=== PATIENT | male | born 1960 | race Caucasian/White ===

== ENCOUNTER 2018-09-23 12:48 | Emergency (ER) | payer OTHER ==
[~2018-09-23] VITALS: Ht 182.9 cm; Wt 90.7 kg
[~2018-09-23 12:48] MED LIST: ACHYD1T PO; CIPR500T78 PO; DCS100C PO; HDR4T PO; HYDR-1231 PO; HYOS0.1216 PO; IBUP400T22 PO; IBUP800T26 PO; ONDA-42 SL; PHEN200T27 PO
--- OUTSIDE RECORDS SUMMARY | 2018-09-23 12:53 | XMS REPORT ---
Author Author SARAH CHRIS Organization [facility] Address [address] [place] [address] Care Team Providers Care Lap Machine Tender Name Role Phone SARAH CHRIS Unavailable PROBLEMS Unknown Problems ALLERGIES Substance Reaction Event Type Date Status Codeine Sulfate Unknown Drug Allergy Feb, Active ENCOUNTERS Encounter Location Date Diagnosis [facility] [address] [facility] [id number] [address] Feb, Upper back strain S29.012A [facility] [address] [facility] [id number], [place] [address] Feb, Bronchitis J40 and Chills R68.83 IMMUNIZATIONS No Known Immunizations SOCIAL HISTORY Never Assessed REASON FOR VISIT Pain (acute) back after crawling up a ladder tuesday. back pain on left lumbar. Tesfaye DIETZ PLAN OF CARE Activity Details Follow Up prn Reason: VITAL SIGNS Height 70 in 2018-02-14 Weight 234.2 lbs 2018-02-14 Temperature 97.5 degrees Fahrenheit 2018-02-14 Heart Rate 79 bpm 2018-02-14 Respiratory Rate 22 2018-02-14 BMI 33.6 kg/m2 2018-02-14 Blood pressure systolic 115 mmHg 2018-02-14 Blood pressure diastolic 74 mmHg 2018-02-14 MEDICATIONS Medication Instructions Dosage Frequency Start Date End Date Duration Status Naproxen 500 MG Orally 2 times a day 1 tablet with food or milk as needed 12h 11 Feb, 2018 Active Azithromycin 250 MG Orally Once a day 2 tablets on the first day, then 1 tablet daily for 4 days 24h 5 day(s) Active RESULTS No Results PROCEDURES No Known procedures INSTRUCTIONS MEDICATIONS ADMINISTERED No Known Medications
--- OUTSIDE RECORDS SUMMARY | 2018-09-23 12:53 | XMS REPORT | Continuity of Care Document ---
Author Organization Unknown Address Unknown Allergies Active Description Code Type Severity Reaction Onset Reported/Identified Relationship to Patient Clinical Status Yes NO KNOWN DRUG ALLERGIES UNKNOWN NO KNOWN DRUG ALLERG Yes NO KNOWN DRUG ALLERGIES UNKNOWN UNKNOWN Yes codeine [id number] Drug Allergy Unknown N/A 06/09/2005 Medications Medication Packaging Start Date Stop Date Route Dosage Sig NORMAL SALINE 1000CC IV BAG INJ 0.9 % (NS 1000CC IV BAG) ml 02/02/2018 02/02/2018 ONCE&1904 SMZ/TMP DS TAB (SEPTRA DS) (Bactrim DS) TAB 02/02/2018 02/02/2018 ONCE&2016 KETOROLAC VIAL INJ 30 MG/CC (TORADOL VIAL) MG 09/20/2018 09/20/2018 ONCE&2305 TAMSULOSIN CAP 0.4 MG (FLOMAX) MG 09/20/2018 09/20/2018 ONCE&2330 ONDANSETRON VIAL INJ 4 MG/2CC (ZOFRAN 2CC VIAL) MG 09/20/2018 09/20/2018 PRN ONCE CEFTRIAXONE PREMIX IV BAG IV 1 GM/50CC (ROCEPHIN PREMIX IV BAG) GM 09/20/2018 09/20/2018 ONCE&2330 FENTANYL INJ 100 MCG/2CC VIAL MCG 09/20/2018 09/20/2018 ONCE&2331 FENTANYL INJ 100 MCG/2CC VIAL MCG 09/21/2018 09/21/2018 ONCE&0012 Problems Date Dx Coded Attending Type Code Diagnosis Diagnosed By 02/12/2011 Ot 592.0 CALCULUS OF KIDNEY 02/12/2011 Ot 593.2 CYST OF KIDNEY, ACQUIRED 02/12/2011 Ot 789.09 ABDOMINAL PAIN, OTHER SPECIFIED SITE 02/02/2018 Chucky Momin 592 CALCULUS OF KIDNEY AND URETER 02/02/2018 Chucky Momin N20.2 CALCULUS OF KIDNEY WITH CALCULUS OF URETER 09/21/2018 KATIA WELDON 592.0 CALCULUS OF KIDNEY 09/21/2018 KATIA WELDON N20.0 CALCULUS OF KIDNEY Procedures There is no data. Results Test Result Range Mycoplasma - 02/26/17 10:09 Mycoplasma Negative Negative Urinalysis - 02/02/18 18:30 Icotest N/A Negative Urine Crystals Calcium oxalate crystals: Few/HPF Urine Volume Urine Volume Sufficient (10mL) Urine-Appearance Slightly Cloudy Clear Urine-Bacteria Rare Urine-Bilirubin Negative Negative Urine-Blood 3+ Negative Urine-Color Yellow Colorless-Lt. Yellow Urine-Epithelial Cells 0-5/HPF Urine-Glucose Negative Negative Urine-Ketones Trace Negative Urine-Leukocytes Negative Negative Urine-Nitrite Negative Negative Urine-Other Urine Saved if Culture Needed (48hrs from time of collection) Urine-pH 5.5 5-8.5 Urine-Protein Trace Negative Urine-RBC TNTC Urine-Specific [place] 1.025 1.000-1.030 Urine-WBC 0-2/HPF Urobilinogen 1.0 0.2-1.0 Comprehensive Metabolic Panel - 02/02/18 18:35 Albumin 4.5 g/dL 3.6-5.1 ALP 67 U/L 35-130 ALT 41 U/L 6-45 Anion Gap 15 6-14 AST 28 U/L 2-40 BUN 24 mg/dL 5-25 Calcium 9.5 mg/dL 8.3-10.4 Chloride 105 mmol/L 95-114 CO2 23 mEq/L 22-33 Creat 1.06 mg/dL 0.50-1.50 eGFR 72 mL/min/1.73m2 >59 Globulin 3.1 g/dL 2.3-3.5 Glucose 95 mg/dL 70-110 Osmo 291 280-295 Potassium 4.1 mmol/L 3.5-5.3 Sodium 139 mmol/L 134-148 TBil 0.5 mg/dL 0.2-1.2 TP 7.6 g/dL 6.0-8.3 Comprehensive Metabolic Panel - 09/20/18 23:04 Albumin 4.4 g/dL 3.6-5.1 ALP 54 U/L 35-130 ALT 46 U/L 6-45 Anion Gap 16 6-14 AST 28 U/L 2-40 BUN 18 mg/dL 5-25 Calcium 10.3 mg/dL 8.3-10.4 Chloride 104 mmol/L 95-114 CO2 24 mEq/L 22-33 Creat 1.18 mg/dL 0.50-1.50 eGFR 63 mL/min/1.73m2 >59 Globulin 2.7 g/dL 2.3-3.5 Glucose 115 mg/dL 70-110 Osmo 292 280-295 Potassium 3.9 mmol/L 3.5-5.3 Sodium 140 mmol/L 134-148 TBil 0.9 mg/dL 0.2-1.2 TP 7.1 g/dL 6.0-8.3 Encounters ACCT No. Visit Date/Time Discharge Status Pt. Type Provider Facility Loc./Unit Complaint [id number] 09/20/2018 22:49:00 09/21[facility]2018 [facility]45[id number]/02/2018 18:16:00 02/02/2018 21[facility]10:00 [id number] 09/28/2017 00:00:00 09/28/2017 23:59:00 DIS Outpatient TAMMI CANCINO [id number] 02/26/2017 09:58:00 02/26/2017 23:59:00 DIS Outpatient Tod Roman [id number] 02/02/2018 19:04:51 Document Registration [id number] 09/21/2017 13:15:00 09/21/2017 23:59:59 CLS Preadmit BEVERLY FLOWERS APRN [facility] RAD CALCIFIC TENDONITIS [id number] 10/16/2013 07:43:00 12/31/2013 00:01:00 DIS Outpatient [id number] 09/10/2013 14:35:00 09/10/2013 23:59:59 CLS Outpatient [id number] 09/05/2013 07:20:00 09/05/2013 23:59:59 CLS Outpatient [id number] 08/29/2013 01:35:00 08/29/2013 12:45:00 DIS Outpatient [id number] 08/26/2013 13:43:00 08/27/2013 10:20:00 DIS Inpatient [id number] 08/23/2013 08:02:00 08/23/2013 11:09:00 DIS Emergency [id number] 08/08/2012 15:15:00 08/08/2012 23:59:59 [facility] Outpatient [id number] 02/12/2011 14:36:00 Document Registration
--- OUTSIDE RECORDS SUMMARY | 2018-09-23 12:53 | XMS REPORT ---
Author Author KYA COTTON Organization [facility] Address [address] [place] [address] Care Team Providers Care Dialysis Clinical Manager Name Role Phone KYA COTTON Unavailable PROBLEMS Unknown Problems ALLERGIES Substance Reaction Event Type Date Status Codeine Sulfate Unknown Drug Allergy Feb, Active ENCOUNTERS Encounter Location Date Diagnosis [facility] [address] [facility] [id number], [place] [address] Feb, Bronchitis J40 and Chills R68.83 IMMUNIZATIONS No Known Immunizations SOCIAL HISTORY Never Assessed REASON FOR VISIT Chest lani, cough, body aches, fatigue, chills started Alyssa Savage PLAN OF CARE Activity Details Follow Up if not improving with PCP or reg follow up Reason: VITAL SIGNS Weight 262.2 lbs 2017-02-25 Temperature 99.1 degrees Fahrenheit 2017-02-25 Heart Rate 100 bpm 2017-02-25 Respiratory Rate 20 2017-02-25 Blood pressure systolic 138 mmHg 2017-02-25 Blood pressure diastolic 90 mmHg 2017-02-25 MEDICATIONS Medication Instructions Dosage Frequency Start Date End Date Duration Status Azithromycin 250 MG Orally Once a day 2 tablets on the first day, then 1 tablet daily for 4 days 24h 5 day(s) Active PredniSONE 20 mg Orally Once a day 1 tablets 24h Feb, Feb, 05 days Active RESULTS Name Result Date Reference Range INFLUENZA A & B (IN HOUSE) 2017-02-25 INFLUENZA A negative INFLUENZA B negative Control + Lot # [id number] Exp date 2019-06-04 PROCEDURES Procedure Date Ordered Result Body Site INFLUENZA ASSAY W/OPTIC Feb 25, 2017 INSTRUCTIONS MEDICATIONS ADMINISTERED No Known Medications
[2018-09-23 13:02] LABS: BASOPHILS % (AUTO) 0 % (0-10); EOSINOPHILS # (AUTO) 0.2 10^3/uL (0.0-0.3); EOSINOPHILS % (AUTO) 2 % (0-10); HEMATOCRIT 40 % (40-54); HEMOGLOBIN 13.3 G/DL (13.3-17.7); LYMPHOCYTES # (AUTO) 1.7 X 10^3 (1.0-4.0); LYMPHOCYTES % (AUTO) 24 % (12-44); MEAN CORPUSCULAR HEMOGLOBIN 30 PG (25-34); MEAN CORPUSCULAR HGB CONC 34 G/DL (32-36); MEAN CORPUSCULAR VOLUME 88 FL (80-99); MEAN PLATELET VOLUME 10.3 FL (7.4-10.4); MONOCYTES # (AUTO) 0.6 X 10^3 (0.0-1.0); MONOCYTES % (AUTO) 8 % (0-12); NEUTROPHILS # (AUTO) 4.9 X 10^3 (1.8-7.8); NEUTROPHILS % (AUTO) 66 % (42-75); PLATELET COUNT 158 10^3/uL (130-400); WHITE BLOOD COUNT 7.4 10^3/uL (4.3-11.0)
[2018-09-23] MEDS ORDERED: OXYB5TAB9 PO (13:03)
[2018-09-23] MEDS ORDERED: OXYC-529 PO (13:03)
[2018-09-23] MEDS ORDERED: TAMS0.4C98 PO (13:03)
--- NOTE | 2018-09-23 13:30 | ED General ---
General Chief Complaint: Respiratory Problems Stated Complaint: SOA Nursing Triage Note: PT TO ED 3 PER EMS W/ C/O SOB, DIZZINESS ONSET TODAY AFTER HAVING HAVING LITHOTRIPSY YESTERDAY AT [facility]. DENIES C/O CP AT THIS TIME. Nursing Sepsis Screen: No Definite Risk Source of Information: Patient Exam Limitations: No Limitations History of Present Illness Date Seen by Provider: Sep 23, 2018 Time Seen by Provider: 13:27 Initial Comments To ER with reports of bilateral hand tingling dizziness and shortness of breath. This began this morning. He awakened at about 6 AM and took his medicine, he then took his second dose of medicine at 10 AM. A while after that he went for a walk outside to get some activity and and developed tingling in both of his hands shortness of breath. He had laser lithotripsy for a left ureteral stone at [facility] was released last night. He was started on Levsin Ditropan and Percocet. He does have a ureteral stent in place in the left ureter, has some pain with urination, hematuria as well. Timing/Duration: 1-2 Days Severity: Moderate Associated Systoms: Shortness of Air Allergies and Home Medications Allergies Coded Allergies: codeine (Verified Allergy, Unknown, 06/09/05) Home Medications Docusate Sodium 100 Mg Capsule, 100 MG PO BID PRN for CONSTIPATION Hold if loose stools Prescribed by: ESTEPHANIE ALONSO on 08/26/13 0255 Hyoscyamine Sulfate 0.125 Mg Tab, 1-2 EACH PO Q4HR PRN Prescribed by: CECI CHAVARRIA on 08/29/13 1224 Oxycodone HCl 5 Mg Tablet, 5 MG PO Q4H PRN for PAIN-MODERATE, (Reported) Patient Home Medication List Home Medication List Reviewed: Yes Review of Systems Review of Systems Constitutional: see HPI; No chills, No fever EENTM: see HPI Respiratory: short of breath Cardiovascular: no symptoms reported Genitourinary: no symptoms reported Musculoskeletal: no symptoms reported Skin: no symptoms reported Psychiatric/Neurological: No Symptoms Reported Hematologic/Lymphatic: No Symptoms Reported Past Jvolphr-Vfxdcd-Ycpvmg Hx Patient Social History Alcohol Use: Denies Use Recreational Drug Use: No Smoking Status: Never a Smoker Recent Foreign Travel: No Contact w/Someone Who Travel: No Recent Infectious Disease Expo: No Physical Abuse: No Sexual Abuse: No Mistreated: No Fear: No Immunizations Up To Date Tetanus Booster (TDap): More than 5yrs Past Medical History Surgeries: Yes (CYSTO & URETEROSCOPY WITH JJ STENT AND RIGHT ESWL) Respiratory: No Cardiac: No Neurological: No Reproductive Disorders: No Genitourinary: Yes Kidney Stones Gastrointestinal: No Musculoskeletal: No Endocrine: No Cancer: No Psychosocial: No Integumentary: No Blood Disorders: No Family Medical History Cancer 19 FATHER (LUNG CANCER) Family history: Diabetes mellitus 19 FATHER Physical Exam Vital Signs Vital Signs - First Documented 09/23/18 12:51 Temp 99.0 Pulse 114 Resp 20 B/P (MAP) 139/102 (114) Pulse Ox 96 O2 Delivery Room Air Capillary Refill : Less Than 3 Seconds Height, Weight, BMI Height: 6'0.00" Weight: 200lbs. 0.0oz. 90.501124xy; BMI Method:Stated General Appearance: No Apparent Distress, WD/WN Eyes: Bilateral Eye Normal Inspection, Bilateral Eye PERRL, Bilateral Eye EOMI HEENT: PERRL/EOMI, TMs Normal Neck: Full Range of Motion, Normal Inspection Respiratory: No Accessory Muscle Use, No Respiratory Distress Cardiovascular: Normal Peripheral Pulses, Tachycardia Gastrointestinal: Non Tender, Soft Extremity: Normal Capillary Refill, Normal Inspection Neurologic/Psychiatric: Alert, Oriented x3, No Motor/Sensory Deficits Skin: Normal Color, Warm/Dry Progress/Results/Core Measures Suspected Sepsis Recent Fever Within 48 Hours: No Infection Criteria Present: None New/Unexplained Altered Menta: No Sepsis Screen: No Definite Risk SIRS Temperature:99.0 Pulse: 114 Respiratory Rate: 20 Laboratory Tests 09/23/18 12:53: White Blood Count 7.4 Blood Pressure 139 /102 Mean: 114 Laboratory Tests 09/23/18 12:53: Creatinine 1.09, Platelet Count 158, Total Bilirubin 0.5 Results/Orders Lab Results Laboratory Tests Test 09/23/18 12:53 09/23/18 14:44 Range/Units White Blood Count 7.4 4.3-11.0 10^3/uL Red Blood Count 4.50 4.35-5.85 10^6/uL Hemoglobin 13.3 13.3-17.7 G/DL Hematocrit 40 40-54 % Mean Corpuscular Volume 88 80-99 FL Mean Corpuscular Hemoglobin 30 25-34 PG Mean Corpuscular Hemoglobin Concent 34 32-36 G/DL Red Cell Distribution Width 14.0 10.0-14.5 % Platelet Count 158 130-400 10^3/uL Mean Platelet Volume 10.3 7.4-10.4 FL Neutrophils (%) (Auto) 66 42-75 % Lymphocytes (%) (Auto) 24 12-44 % Monocytes (%) (Auto) 8 0-12 % Eosinophils (%) (Auto) 2 0-10 % Basophils (%) (Auto) 0 0-10 % Neutrophils # (Auto) 4.9 1.8-7.8 X 10^3 Lymphocytes # (Auto) 1.7 1.0-4.0 X 10^3 Monocytes # (Auto) 0.6 0.0-1.0 X 10^3 Eosinophils # (Auto) 0.2 0.0-0.3 10^3/uL Basophils # (Auto) 0.0 0.0-0.1 10^3/uL Sodium Level 139 135-145 MMOL/L Potassium Level 3.6 3.6-5.0 MMOL/L Chloride Level 108 H 98-107 MMOL/L Carbon Dioxide Level 22 21-32 MMOL/L Anion Gap 9 5-14 MMOL/L Blood Urea Nitrogen 17 7-18 MG/DL Creatinine 1.09 0.60-1.30 MG/DL Estimat Glomerular Filtration Rate > 60 BUN/Creatinine Ratio 16 Glucose Level 114 H 70-105 MG/DL Calcium Level 8.7 8.5-10.1 MG/DL Corrected Calcium 8.9 8.5-10.1 MG/DL Total Bilirubin 0.5 0.1-1.0 MG/DL Aspartate Amino Transf (AST/SGOT) 18 5-34 U/L Alanine Aminotransferase (ALT/SGPT) 26 0-55 U/L Alkaline Phosphatase 51 40-136 U/L Troponin I < 0.028 <0.028 NG/ML Total Protein 5.9 L 6.4-8.2 GM/DL Albumin 3.7 3.2-4.5 GM/DL Urine Color RED H Urine Clarity SLIGHTLY CLOUDY Urine pH 6 5-9 Urine Specific [place] 1.010 L 1.016-1.022 Urine Protein 3+ H NEGATIVE Urine Glucose (UA) NEGATIVE NEGATIVE Urine Ketones NEGATIVE NEGATIVE Urine Nitrite NEGATIVE NEGATIVE Urine Bilirubin NEGATIVE NEGATIVE Urine Urobilinogen NORMAL NORMAL MG/DL Urine Leukocyte Esterase 3+ H NEGATIVE Urine RBC (Auto) 5+ H NEGATIVE Urine RBC TNTC H /HPF Urine WBC 10-25 H /HPF Urine Crystals NONE /LPF Urine Bacteria MODERATE H /HPF Urine Casts NONE /LPF Urine Mucus NEGATIVE /LPF Urine Culture Indicated YES My Orders Orders - ILA SKY CLINICAL SERVICES CONSULTANT Cbc With Automated Diff (09/23/18 12:53) Comprehensive Metabolic Panel (09/23/18 12:53) Ua Culture If Indicated (09/23/18 12:53) Chest 1 View, Ap/Pa Only (09/23/18 12:53) Ed Iv/Invasive Line Start (09/23/18 12:53) Ekg Tracing (09/23/18 12:53) Troponin I (09/23/18 12:53) Lorazepam Injection (Ativan Injection) (09/23/18 13:45) Ct Angio Chest W (09/23/18 13:33) Iohexol Injection (Omnipaque 350 Mg/Ml 1 (09/23/18 13:45) Received Contrast (Hold Metformin- Contr (09/23/18 13:45) Sodium Chloride Flush (Catheter Flush Sy (09/23/18 13:45) Ns (Ivpb) (Sodium Chloride 0.9% Ivpb Bag (09/23/18 13:45) Urine Culture (09/23/18 14:44) Rocephin 1 Gm Iv (1x Dose) (09/23/18 15:30) Medications Given in ED Current Medications Medications Dose Ordered Sig/Anna Route Start Time Stop Time Status Last Admin Dose Admin Iohexol 100 ml ONCE ONCE IV 09/23/18 13:45 09/23/18 13:46 DC 09/23/18 13:59 74 ML Lorazepam 0.5 mg ONCE PRN IVP 09/23/18 13:45 09/23/18 13:46 0.5 MG Sodium Chloride 10 ml NEEDED PRN IV 09/23/18 13:45 09/23/18 13:59 10 ML Sodium Chloride 100 ml ONCE ONCE IV 09/23/18 13:45 09/23/18 13:46 DC 09/23/18 13:59 80 ML Vital Signs/I&O 09/23/18 12:51 Temp 99.0 Pulse 114 Resp 20 B/P (MAP) 139/102 (114) Pulse Ox 96 O2 Delivery Room Air Capillary Refill : Less Than 3 Seconds Blood Pressure Mean: 114 Departure Communication (Admissions) 1337-patient states that he is feeling very jittery and anxious. Patient's states that she believes all of this to have been related to panic taking at home. He does appear anxious. Impression Primary Impression: Medication side effect Additional Impressions: Anxiety Shortness of breath Numbness and tingling in both hands Disposition: HOME, SELF-CARE Condition: Stable Departure-Patient Inst. Decision time for Depature: 15:02 Referrals: ROBIN SAWYER MD (PCP/Family) Primary Care Physician Patient Instructions: Kidney Stones (DC) Add. Discharge Instructions: 1. Return to ER for any concerns 2. Drink plenty of fluids. Side effects of the oxybutynin and hyoscyamine are dizziness and dry mouth. All discharge instructions reviewed with patient and/or family. Voiced understanding. Scripts Cefdinir (Cefdinir) 300 Mg Capsule 300 MG PO BID, #14 CAP 0 Refills Prov: ILA SKY APRN 09/23/18 ILA SKY APRN Sep 23, 2018 13:30
[2018-09-23 13:34] LABS: ALANINE AMINOTRANSFERASE 26 U/L (0-55); ALBUMIN 3.7 GM/DL (3.2-4.5); ALKALINE PHOSPHATASE 51 U/L (40-136); BILIRUBIN,TOTAL 0.5 MG/DL (0.1-1.0); BUN/CREATININE RATIO 16; CALCIUM 8.7 MG/DL (8.5-10.1); CARBON DIOXIDE 22 MMOL/L (21-32); CHLORIDE 108 MMOL/L (98-107); CREATININE SERUM 1.09 MG/DL (0.60-1.30); GFR ESTIMATED > 60; GLUCOSE 114 MG/DL (70-105); POTASSIUM 3.6 MMOL/L (3.6-5.0); SODIUM 139 MMOL/L (135-145); TOTAL PROTEIN 5.9 GM/DL (6.4-8.2)
--- NOTE | 2018-09-23 13:34 | Diagnostic Imaging Report ---
INDICATION: Chest pain COMPARISON: None. FINDINGS: Single view the chest demonstrate clear lungs bilaterally. The heart size is normal. There is no pneumothorax. Osseous structures are normal. IMPRESSION: No acute findings. Normal chest. Dictated by: Dictated on workstation # [id number]
[2018-09-23] MEDS: LORazepam INJ 2 MG/ML (ATIVAN) VIAL IVP PRN ×2 (13:41→13:46)
[2018-09-23] MEDS ORDERED: NS 100 ML (IVPB) BAG IV ONE (13:45)
[2018-09-23] MEDS ORDERED: CATHETER FLUSH 10 ML SYR IV PRN (13:45)
[2018-09-23] MEDS ORDERED: HOLD METFORMIN - RECEIVED CONTRAST 20 ML VIAL IV SCH (13:45)
[2018-09-23] MEDS ORDERED: IOHEXOL 350 MG/ML 100 ML (OMNIPAQUE 350) VIAL IV ONE (13:45)
--- NOTE | 2018-09-23 14:07 | Diagnostic Imaging Report ---
PROCEDURE: CT angiography of the chest with contrast. TECHNIQUE: Multiple contiguous axial images were obtained through the chest after uneventful bolus administration of intravenous contrast. 2D reconstructed CTA MIP acquisitions were also performed. Auto Exposure Controls were utilized during the CT exam to meet ALARA standards for radiation dose reduction. INDICATION: Tachycardia, chest pain, recent surgery. COMPARISON: None. FINDINGS: The heart size is normal. There is no pericardial effusion. No lymphadenopathy seen. Pulmonary arteries and aorta grossly normal. Central airways are intact. There is minimal atelectasis in both lung bases. Otherwise, lungs are clear. There is no mass, nodule or suspicious infiltrate. Osseous structures are age-appropriate. Visualized upper abdominal solid organs are unremarkable. There is partial visualization of double-J stent on the left. IMPRESSION: 1. Bibasilar atelectasis. 2. No pulmonary embolism or acute aortic pathology identified. Dictated by: Dictated on workstation # [id number]
[2018-09-23 14:49] LABS: BILIRUBIN,URINE NEGATIVE (NEGATIVE); GLUCOSE, URINE (UA) NEGATIVE (NEGATIVE); KETONES,URINE NEGATIVE (NEGATIVE); LEUKOCYTE ESTERASE ,URINE 3+ (NEGATIVE); NITRITE,URINE NEGATIVE (NEGATIVE); PH,URINE 6 (5-9); PROTEIN,URINE 3+ (NEGATIVE); UROBILINOGEN,URINE NORMAL (NORMAL)
[2018-09-23 14:55] LABS: CLARITY,URINE SLIGHTLY CLOUDY; COLOR,URINE RED
[2018-09-23 15:14] LABS: RBC,URINE TNTC /HPF
[2018-09-23 15:15] LABS: BACTERIA,URINE MODERATE /HPF
[2018-09-23] MEDS ORDERED: CEFD300C3 PO (15:17)
[2018-09-23] MEDS ORDERED: cefTRIAXone FOR IV USE 1,000 MG in WATER (STERILE) FOR INJECTION 10 ML IV ONE (15:30)
[2018-09-23] MEDS ORDERED: LORazepam INJ 2 MG/ML (ATIVAN) VIAL IVP PRN (15:30)
[2018-09-23 15:42] VITALS: BP 134/90
== END 2018-09-23 15:42 | disposition home or self-care (01) ==
LOC: EDUNIT# 12:48 → ER 12:50
DX: R20.0 Anesthesia of skin (principal); R20.2 Paresthesia of skin; T44.3X5A Adverse effect of other parasympatholytics [anticholinergics and antimuscarinics] and spasmolytics, initial encounter; T40.2X5A Adverse effect of other opioids, initial encounter; R06.02 Shortness of breath; F41.9 Anxiety disorder, unspecified; Z80.1 Family history of malignant neoplasm of trachea, bronchus and lung; Z87.442 Personal history of urinary calculi; Z88.5 Allergy status to narcotic agent
CPT/HCPCS: 36415; 71045; 71275; 80053; 81000; 84484; 85025; 87088; 93005; 96374; 96375; 96376

== ENCOUNTER → 2022-05-14 | Outpatient (CLI) | payer OTHER ==
[~2022-05-14] MED LIST changes: +CEFD300C3 PO; +OXC5T PO; +OXYB5TAB13 PO; +TMSL.4C PO
== END ==
LOC: CARD 14:00
PROVIDERS: ATTEND Internal Medicine
DX: R00.2 Palpitations (principal)
CPT/HCPCS: 93225; 93226